=== PATIENT | male | born 1980 | race Caucasian/White ===

== ENCOUNTER 2016-10-12 18:02 | Emergency (ER) | payer SELFPAY ==
[2016-10-12 18:08] VITALS: BP 118/82; BMI 26.0
--- NOTE | 2016-10-12 21:21 | DR.GENAD ---
HPI - PCP Primary Care Physician: refugio - Complaint/Symptoms Chief Complaint:: rt shoulder pain x 3 days pt injuried his rotator cuff few years ago but never had surgery - Source History Provided: Patient - Mode of Arrival Mode of Arrival: Ambulatory - Timing Onset of Chief Complaint: 10/10/16 PMH - PMH Past Medical History: No Past Surgical History: No - Family History History of Family Medical Conditions: No - Social History Type of Tobacco Use: Cigarettes Does any household member use tobacco: No Alcohol Use: Occasionally Do you use any recreational Drugs:: No Lives With: Family Lives Where: Home - infectious screening In the last 2 months have you had wt loss of >10#?: NO Have you had fever, night sweats or hemotysis?: No Have you traveled outside the country in the last 6 months?: No Isolation: Standard PE - Vital Signs Vitals: Temperature 986 F Pulse Rate 100 Respiratory Rate 19 Blood Pressure 118/82 O2 Sat by Pulse Oximetry 100 - Discharge Plan Condition: Stable - Follow ups/Referrals Follow ups/Referrals: NFD,None [Primary Care Provider] - 3 days - Instructions
== END 2016-10-12 20:00 | disposition left against medical advice (07) ==
LOC: ER 18:02
DX: M25.511 Pain in right shoulder (principal)
CPT/HCPCS: 99281